=== PATIENT | male | born 1965 | race Caucasian/White ===

== ENCOUNTER 2017-03-27 22:37 | Inpatient (IN) | payer OTHER ==
[~2017-03-27] VITALS: Ht 188 cm; Wt 80.0 kg
[2017-03-27 23:41] VITALS: BP 105/71; PULSE 57; TEMP 98.1
[2017-03-28] VITALS (14 sets, daily range): BP systolic 101–147; BP diastolic 57–94; PULSE 53–107; TEMP 97.9–98.6
[2017-03-28 01:38] LABS: PARTIAL THROMBOPLASTIN TIME 24.1 SECONDS (26.0-37.0)
[2017-03-28 01:39] LABS: CHOLESTEROL 211 mg/dL (120-200); CHOLESTEROL RISK RATIO 4.3; HDL CHOLESTEROL 48 mg/dL; LDL CHOLESTEROL 142 mg/dL; TRIGLYCERIDE 105 mg/dL
[2017-03-28 01:51] LABS: B-TYPE NATRIURETIC PEPTIDE 24 pg/mL (0-125)
[2017-03-28 01:53] LABS: TROPONIN-I < 0.012 ng/mL (0.000-0.034)
[2017-03-28 08:55] LABS: BASO # 0.1 (0.0-0.2); BASO % 0.9 % (0.0-2.0); EOS # 0.1 (0.0-0.7); GRAN # 7.8 (1.4-6.5); GRAN % 73.9 % (42.2-75.2); HEMATOCRIT 40.8 % (42.0-52.0); HEMOGLOBIN 13.3 g/dl (13.5-18.0); LYMPH # 1.6 (1.2-3.4); LYMPH % 15.4 % (20.0-51.0); MEAN CELL VOLUME 99 fl (80.0-100.0); MEAN CORPUSCULAR HEMOGLOBIN 32 pg (27.0-31.0); MEAN CORPUSCULAR HGB CONC 33 g/dl (33.0-37.0); MEAN PLATELET VOLUME 10.7 fl (7.4-10.4); MONO # 0.9 (0.1-0.6); MONO % 8.2 % (1.7-9.3); PLATELET COUNT 255 K/mm3 (130-400); RED BLOOD COUNT 4.14 M/mm3 (4.20-5.60); WHITE BLOOD COUNT 10.5 K/mm3 (4.8-10.8)
[2017-03-28 08:57] LABS: ADJUSTED CALCIUM 9.5 mg/dL (8.4-10.2); BILIRUBIN,TOTAL 1.1 mg/dL (0.0-1.0); CALCIUM 8.7 mg/dL (8.4-10.2); CREATININE, serum 0.78 mg/dL (0.66-1.25); POTASSIUM 4.4 mmol/L (3.4-5.0); TOTAL PROTEIN 6.2 gm/dL (6.4-8.2)
[2017-03-28 19:13] LABS: C-REACTIVE PROTEIN < 0.5 mg/dL (0.0-0.9); TROPONIN-I < 0.012 ng/mL (0.000-0.034)
[2017-03-28 19:51] LABS: TSH w REFLEX 3.75 uIU/mL (0.465-4.680)
[2017-03-28 21:25] LABS: PH 6 (5-8); URINE BILIRUBIN Negative (NEGATIVE); URINE GLUCOSE Negative (NEGATIVE); URINE KETONE Negative (NEGATIVE); URINE PROTEIN(semi-quant) 1+ (NEGATIVE); URINE UROBILINOGEN >=4.0 mg/dL (NEGATIVE)
[2017-03-28 21:26] LABS: URINE APPEARANCE Hazy; URINE BLOOD Negative (NEGATIVE); URINE COLOR Yellow; URINE LEUKOCYTE ESTERASE 1+ (NEGATIVE)
[2017-03-28 21:37] LABS: MUCOUS Present /lpf; SQUAMOUS EPITHELIAL 0-2 /hpf; URINE BACTERIA None Seen /hpf
[2017-03-28 21:38] LABS: COLLECTION METHOD CLEAN CATCH
[2017-03-29] VITALS (7 sets, daily range): BP systolic 108–132; BP diastolic 59–86; PULSE 55–79; TEMP 97.7–98.3
[2017-03-29 06:36] LABS: BASO # 0.1 (0.0-0.2); BASO % 1.3 % (0.0-2.0); EOS # 0.2 (0.0-0.7); EOS % 1.9 % (0-4.0); GRAN # 5.9 (1.4-6.5); HEMATOCRIT 38.3 % (42.0-52.0); HEMOGLOBIN 12.8 g/dl (13.5-18.0); LYMPH # 1.7 (1.2-3.4); LYMPH % 19.1 % (20.0-51.0); MEAN CELL VOLUME 98 fl (80.0-100.0); MEAN CORPUSCULAR HEMOGLOBIN 33 pg (27.0-31.0); MEAN CORPUSCULAR HGB CONC 33 g/dl (33.0-37.0); MEAN PLATELET VOLUME 10.2 fl (7.4-10.4); MONO # 0.9 (0.1-0.6); MONO % 10.4 % (1.7-9.3); PLATELET COUNT 196 K/mm3 (130-400); RED BLOOD COUNT 3.93 M/mm3 (4.20-5.60); WHITE BLOOD COUNT 8.8 K/mm3 (4.8-10.8)
[2017-03-29 06:54] LABS: CALCIUM 8.3 mg/dL (8.4-10.2); CREATININE, serum 0.74 mg/dL (0.66-1.25); POTASSIUM 3.8 mmol/L (3.4-5.0)
[2017-03-30] VITALS (8 sets, daily range): BP systolic 118–153; BP diastolic 71–107; PULSE 58–70; TEMP 97.8–99
[2017-03-30 07:06] LABS: BASO # 0.1 (0.0-0.2); BASO % 1.6 % (0.0-2.0); EOS # 0.2 (0.0-0.7); EOS % 2.3 % (0-4.0); GRAN # 4.7 (1.4-6.5); GRAN % 66.3 % (42.2-75.2); HEMATOCRIT 38.7 % (42.0-52.0); LYMPH # 1.2 (1.2-3.4); LYMPH % 17.2 % (20.0-51.0); MEAN CELL VOLUME 97 fl (80.0-100.0); MEAN CORPUSCULAR HEMOGLOBIN 32 pg (27.0-31.0); MEAN CORPUSCULAR HGB CONC 34 g/dl (33.0-37.0); MEAN PLATELET VOLUME 10.5 fl (7.4-10.4); MONO # 0.9 (0.1-0.6); PLATELET COUNT 193 K/mm3 (130-400); RED BLOOD COUNT 4.01 M/mm3 (4.20-5.60); WHITE BLOOD COUNT 7.1 K/mm3 (4.8-10.8)
[2017-03-30 07:22] LABS: CALCIUM 8.4 mg/dL (8.4-10.2); CREATININE, serum 0.73 mg/dL (0.66-1.25); POTASSIUM 3.9 mmol/L (3.4-5.0)
[2017-03-31 02:22] LABS: BASO # 0.1 (0.0-0.2); BASO % 1.3 % (0.0-2.0); EOS # 0.1 (0.0-0.7); EOS % 1.9 % (0-4.0); GRAN # 4.1 (1.4-6.5); GRAN % 61.5 % (42.2-75.2); HEMOGLOBIN 12.1 g/dl (13.5-18.0); LYMPH # 1.6 (1.2-3.4); LYMPH % 23.2 % (20.0-51.0); MEAN CELL VOLUME 97 fl (80.0-100.0); MEAN CORPUSCULAR HEMOGLOBIN 32 pg (27.0-31.0); MEAN CORPUSCULAR HGB CONC 34 g/dl (33.0-37.0); MEAN PLATELET VOLUME 10.5 fl (7.4-10.4); MONO # 0.8 (0.1-0.6); MONO % 11.5 % (1.7-9.3); PLATELET COUNT 167 K/mm3 (130-400); RED BLOOD COUNT 3.73 M/mm3 (4.20-5.60); WHITE BLOOD COUNT 6.7 K/mm3 (4.8-10.8)
[2017-03-31 02:24] LABS: HEMATOCRIT 36.1 % (42.0-52.0)
[2017-03-31 02:34] LABS: CALCIUM 8.8 mg/dL (8.4-10.2); CREATININE, serum 0.77 mg/dL (0.66-1.25); MAGNESIUM 1.8 mg/dL (1.6-2.3); PHOSPHOROUS 3.7 mg/dL (2.5-4.5)
[2017-03-31 03:41] VITALS: BP 118/71; PULSE 53; TEMP 98.7
[2017-03-31 08:06] VITALS: BP 110/82; PULSE 63; TEMP 98.1
[2017-03-31 11:43] VITALS: BP 153/85; PULSE 64; TEMP 98.9
[2017-03-31 11:46] VITALS: BP 153/85
[2017-03-31 15:51] VITALS: BP 155/87; PULSE 64; TEMP 98
[2017-03-31 20:36] VITALS: BP 139/88; PULSE 62; TEMP 99.2
[2017-04-01 01:40] VITALS: BP 135/89; PULSE 53; TEMP 97.4
[2017-04-01 05:51] VITALS: BP 140/89; PULSE 56; TEMP 98.3
[2017-04-01 06:14] LABS: BASO # 0.1 (0.0-0.2); BASO % 1.6 % (0.0-2.0); EOS # 0.2 (0.0-0.7); EOS % 2.5 % (0-4.0); GRAN # 4.3 (1.4-6.5); GRAN % 60.4 % (42.2-75.2); HEMATOCRIT 41.3 % (42.0-52.0); HEMOGLOBIN 13.8 g/dl (13.5-18.0); LYMPH # 1.6 (1.2-3.4); LYMPH % 22.2 % (20.0-51.0); MEAN CELL VOLUME 96 fl (80.0-100.0); MEAN CORPUSCULAR HEMOGLOBIN 32 pg (27.0-31.0); MEAN CORPUSCULAR HGB CONC 33 g/dl (33.0-37.0); MEAN PLATELET VOLUME 10.6 fl (7.4-10.4); MONO # 0.9 (0.1-0.6); MONO % 12.9 % (1.7-9.3); PLATELET COUNT 184 K/mm3 (130-400); RED BLOOD COUNT 4.29 M/mm3 (4.20-5.60); WHITE BLOOD COUNT 7.1 K/mm3 (4.8-10.8)
[2017-04-01 06:29] LABS: CALCIUM 8.7 mg/dL (8.4-10.2); CREATININE, serum 0.75 mg/dL (0.66-1.25); MAGNESIUM 1.9 mg/dL (1.6-2.3); PHOSPHOROUS 3.5 mg/dL (2.5-4.5); POTASSIUM 3.9 mmol/L (3.4-5.0)
[2017-04-01 07:42] VITALS: BP 148/81; PULSE 61; TEMP 97.5
[2017-04-01 11:26] VITALS: BP 138/79; PULSE 71; TEMP 97.9
[2017-04-01 13:23] LABS: CEREBROSPINAL TUBE #3; CSF APPEARANCE CLEAR; CSF COLOR COLORLESS
[2017-04-01 13:24] LABS: CSF POLYMORPHONUCLEAR 0 % (0-6)
[2017-04-01 15:48] VITALS: BP 131/91; PULSE 76; TEMP 97.8
[2017-04-01 20:42] VITALS: BP 128/98; PULSE 70; TEMP 98.6
[2017-04-02 00:14] VITALS: BP 123/76; PULSE 59; TEMP 98.4
[2017-04-02 04:16] VITALS: BP 125/76; PULSE 59; TEMP 98.3
[2017-04-02 06:39] LABS: BASO # 0.1 (0.0-0.2); BASO % 1.4 % (0.0-2.0); EOS # 0.2 (0.0-0.7); EOS % 2.7 % (0-4.0); GRAN # 5.3 (1.4-6.5); GRAN % 62.1 % (42.2-75.2); LYMPH # 1.8 (1.2-3.4); MEAN CELL VOLUME 97 fl (80.0-100.0); MEAN CORPUSCULAR HEMOGLOBIN 32 pg (27.0-31.0); MEAN CORPUSCULAR HGB CONC 33 g/dl (33.0-37.0); MEAN PLATELET VOLUME 11.3 fl (7.4-10.4); MONO # 1.1 (0.1-0.6); MONO % 12.3 % (1.7-9.3); PLATELET COUNT 179 K/mm3 (130-400); RED BLOOD COUNT 4.33 M/mm3 (4.20-5.60); WHITE BLOOD COUNT 8.6 K/mm3 (4.8-10.8)
[2017-04-02 07:17] LABS: ADJUSTED CALCIUM 9.8 mg/dL (8.4-10.2); ALBUMIN 3.3 gm/dL (3.5-5.0); BILIRUBIN,TOTAL 0.6 mg/dL (0.0-1.0); CALCIUM 9.2 mg/dL (8.4-10.2); CREATININE, serum 0.77 mg/dL (0.66-1.25); POTASSIUM 3.9 mmol/L (3.4-5.0); TOTAL PROTEIN 6.4 gm/dL (6.4-8.2)
[2017-04-02 07:37] VITALS: BP 121/82; PULSE 57; TEMP 98.1
[2017-04-02 11:32] VITALS: BP 100/56; PULSE 66; TEMP 97.9
[2017-04-02 15:29] VITALS: BP 140/79; PULSE 61; TEMP 97.8
[2017-04-02 19:48] VITALS: BP 129/84; PULSE 64; TEMP 98.6
[2017-04-03 00:44] VITALS: BP 117/74; PULSE 58; TEMP 97.8
[2017-04-03 06:54] LABS: BASO # 0.1 (0.0-0.2); BASO % 1.2 % (0.0-2.0); EOS # 0.2 (0.0-0.7); EOS % 2.7 % (0-4.0); GRAN # 4.4 (1.4-6.5); GRAN % 58.5 % (42.2-75.2); HEMATOCRIT 41.1 % (42.0-52.0); HEMOGLOBIN 14.1 g/dl (13.5-18.0); LYMPH # 1.7 (1.2-3.4); LYMPH % 23.4 % (20.0-51.0); MEAN CELL VOLUME 97 fl (80.0-100.0); MEAN CORPUSCULAR HEMOGLOBIN 33 pg (27.0-31.0); MEAN CORPUSCULAR HGB CONC 34 g/dl (33.0-37.0); MEAN PLATELET VOLUME 11.2 fl (7.4-10.4); MONO % 13.1 % (1.7-9.3); PLATELET COUNT 171 K/mm3 (130-400); RED BLOOD COUNT 4.24 M/mm3 (4.20-5.60); WHITE BLOOD COUNT 7.4 K/mm3 (4.8-10.8)
[2017-04-03 07:05] LABS: CREATININE, serum 0.75 mg/dL (0.66-1.25)
[2017-04-03 08:05] VITALS: BP 128/77; PULSE 63; TEMP 98.2
[2017-04-03 12:42] VITALS: BP 131/82; PULSE 56; TEMP 98.6
[2017-04-03 15:50] VITALS: BP 143/89; PULSE 69; TEMP 98
[2017-04-03 19:49] VITALS: BP 120/72; PULSE 70; TEMP 98
[2017-04-03 23:58] VITALS: BP 103/58; PULSE 64; TEMP 98
[2017-04-04 05:21] VITALS: BP 105/61; BP 94/61; PULSE 55; TEMP 97.6
[2017-04-04 07:37] VITALS: BP 103/59; PULSE 55; TEMP 98.2
[2017-04-04 08:10] LABS: ALBUMIN CSF 17.2 mg/dL (<=27.0); CSF IGG/ALBUMIN 0.22 (<=0.21); CSF,IGG 3.7 mg/dL (<=8.1)
[2017-04-04 08:21] LABS: CSF SYNTHESIS RATE 3.91 mg/24 h (<=12); CSF-IGG INDEX 0.67 (<=0.85); IGG/ALBUMIN SERUM 0.33 (<=0.40)
[2017-04-04 11:32] VITALS: BP 111/85; PULSE 61; TEMP 98.2
[2017-04-04] MEDS ORDERED: DEPAKOTE500 MG PO (13:07)
[2017-04-04] MEDS ORDERED: KETOROLAC30 MG/ML IV (17:46)
[2017-04-04] MEDS ORDERED: PRINIVIL5 MG PO (17:55)
[2017-04-05] MEDS ORDERED: MUCINEX DM 30 M1 TE1 (01:07)
[2017-04-05] MEDS ORDERED: SEROQUEL 2525 MG/TAB PO (01:08)
[2017-04-05] MEDS ORDERED: FLONASE NASAL S16 GM NS (01:10)
[2017-04-05] MEDS ORDERED: FLORASTOR250 MG PO (01:11)
[2017-04-05] MEDS ORDERED: PROBIOTIC ACID1 EAC3 PO (01:13)
[2017-04-05] MEDS ORDERED: NITRO-BID22 TOP (01:33)
[2017-04-05] MEDS ORDERED: GICOCKTAIL PO (01:34)
[2017-04-05] MEDS ORDERED: PLAVIX 75MG TAB75 MG PO (01:35)
[2017-04-05] MEDS ORDERED: THIAMINE 1100 MG/TAB PO (01:35)
[2017-04-05] MEDS ORDERED: DULCOLAX STOOL100 MG PO (01:37)
[2017-04-05] MEDS ORDERED: AMOXICILLIN 8751 TAB PO (01:37)
[2017-04-05] MEDS ORDERED: PEPCID 20MG TAB20 MG PO (01:38)
[2017-04-05] MEDS ORDERED: TYLENOL 325MG325 MG PO (01:39)
[2017-04-05] MEDS ORDERED: MAALOX ADVANCE148 ML PO (01:41)
[2017-04-05] MEDS ORDERED: NITROSTAT0.4 MG/TAB SL (01:42)
[2017-04-05] MEDS ORDERED: ZOFRAN INJ4 MG/2 ML IV (01:44)
== END 2017-04-04 13:58 | DRG 884 ==
LOC: MEDICAL 22:37
PROVIDERS: Internal Medicine; Nurse Practitioner Family; Physician Assistant; Psychiatry & Neurology Neurology
PROC: 009U3ZX Drainage of Spinal Canal, Percutaneous Approach, Diagnostic (ICD-10-PCS; principal; 2017-04-01)
PROC: B01B1ZZ Fluoroscopy of Spinal Cord using Low Osmolar Contrast (ICD-10-PCS; 2017-04-01)
DX: R40.4 Transient alteration of awareness (principal); I69.351 Hemiplegia and hemiparesis following cerebral infarction affecting right dominant side; E87.1 Hypo-osmolality and hyponatremia; N39.0 Urinary tract infection, site not specified; R55 Syncope and collapse; Z66 Do not resuscitate; I10 Essential (primary) hypertension; F17.210 Nicotine dependence, cigarettes, uncomplicated; J01.20 Acute ethmoidal sinusitis, unspecified; J01.00 Acute maxillary sinusitis, unspecified; H53.461 Homonymous bilateral field defects, right side; H02.401 Unspecified ptosis of right eyelid; M50.321 Other cervical disc degeneration at C4-C5 level
CPT/HCPCS: 99223-AI; 99231-AI; 99232-AI; 99233-AI; 99239; A9502; A9585; J1200; J1650; J1885; J2060; J2270; J2405; J2765; J2785; J3411; J7030; J7120

== ENCOUNTER 2017-04-04 10:10 | Inpatient (IN) | payer OTHER ==
[~2017-04-04] VITALS: Ht 190.5 cm; Wt 82.0 kg
[2017-04-04] MEDS ORDERED: DEPAKOTE500 MG PO (13:07)
[2017-04-04 14:59] VITALS: BP 104/74; PULSE 75; TEMP 97.7
[2017-04-04 17:22] VITALS: BP 110/67; PULSE 62; TEMP 97.9
[2017-04-04] MEDS ORDERED: KETOROLAC30 MG/ML IV (17:46)
[2017-04-04 17:55] VITALS: BP 110/67; PULSE 62; TEMP 97.9
[2017-04-04] MEDS ORDERED: PRINIVIL5 MG PO (17:55)
[2017-04-05] MEDS ORDERED: MUCINEX DM 30 M1 TE1 (01:07)
[2017-04-05] MEDS ORDERED: SEROQUEL 2525 MG/TAB PO (01:08)
[2017-04-05] MEDS ORDERED: FLONASE NASAL S16 GM NS (01:10)
[2017-04-05] MEDS ORDERED: FLORASTOR250 MG PO (01:11)
[2017-04-05] MEDS ORDERED: PROBIOTIC ACID1 EAC3 PO (01:13)
[2017-04-05] MEDS ORDERED: NITRO-BID22 TOP (01:33)
[2017-04-05] MEDS ORDERED: GICOCKTAIL PO (01:34)
[2017-04-05] MEDS ORDERED: PLAVIX 75MG TAB75 MG PO (01:35)
[2017-04-05] MEDS ORDERED: THIAMINE 1100 MG/TAB PO (01:35)
[2017-04-05] MEDS ORDERED: DULCOLAX STOOL100 MG PO (01:37)
[2017-04-05] MEDS ORDERED: AMOXICILLIN 8751 TAB PO (01:37)
[2017-04-05] MEDS ORDERED: PEPCID 20MG TAB20 MG PO (01:38)
[2017-04-05] MEDS ORDERED: TYLENOL 325MG325 MG PO (01:39)
[2017-04-05] MEDS ORDERED: MAALOX ADVANCE148 ML PO (01:41)
[2017-04-05] MEDS ORDERED: NITROSTAT0.4 MG/TAB SL (01:42)
[2017-04-05] MEDS ORDERED: ZOFRAN INJ4 MG/2 ML IV (01:44)
[2017-04-05 05:10] VITALS: BP 98/60; PULSE 56; TEMP 97.4
[2017-04-05 05:45] VITALS: BP 98/60; PULSE 56
[2017-04-05 09:54] VITALS: BP 126/80
[2017-04-05 16:25] VITALS: BP 128/88; PULSE 66; TEMP 98.2
[2017-04-06 06:36] VITALS: BP 110/67; PULSE 55; TEMP 98.2
[2017-04-06 17:44] VITALS: BP 143/88; PULSE 69; TEMP 98.1
[2017-04-07 06:16] VITALS: BP 113/70; PULSE 59; TEMP 97.3
[2017-04-07 16:12] VITALS: BP 129/68; PULSE 60; TEMP 98.4
[2017-04-08 05:42] VITALS: BP 94/62; PULSE 55; TEMP 98.2
[2017-04-08 12:32] VITALS: BP 114/72; PULSE 68
[2017-04-08 14:25] VITALS: BP 120/78; PULSE 66; TEMP 97.6
[2017-04-08 16:41] VITALS: BP 113/63; PULSE 62; TEMP 98.3
[2017-04-09 04:43] VITALS: BP 102/59; PULSE 55; TEMP 97.8
[2017-04-09 08:34] VITALS: BP 122/78
[2017-04-09 17:53] VITALS: BP 124/67; PULSE 69; TEMP 98.1
[2017-04-10 05:50] LABS: HEMATOCRIT 43.1 % (42.0-52.0); MEAN CELL VOLUME 100 fl (80.0-100.0); MEAN CORPUSCULAR HEMOGLOBIN 32 pg (27.0-31.0); MEAN CORPUSCULAR HGB CONC 33 g/dl (33.0-37.0); MEAN PLATELET VOLUME 10.8 fl (7.4-10.4); PLATELET COUNT 178 K/mm3 (130-400); RED BLOOD COUNT 4.32 M/mm3 (4.20-5.60)
[2017-04-10 05:57] LABS: ALBUMIN 3.8 gm/dL (3.5-5.0); BILIRUBIN,TOTAL 0.6 mg/dL (0.0-1.0); CALCIUM 9.6 mg/dL (8.4-10.2); CREATININE, serum 0.84 mg/dL (0.66-1.25); POTASSIUM 4.6 mmol/L (3.4-5.0); TOTAL PROTEIN 7.3 gm/dL (6.4-8.2)
[2017-04-10 06:07] LABS: BAND 2 % (0-10); BASOPHIL 2 % (0-2); EOSINOPHIL 4 % (0-4); LYMPHOCYTE 40 % (20.0-51.0); NEUTROPHILS 42 % (42.0-75.2)
[2017-04-10 06:08] LABS: ANISOCYTOSIS 2+; HYPOCHROMIA 2+; MICROCYTOSIS 1+
[2017-04-10 06:14] VITALS: BP 103/67; PULSE 61; TEMP 97.6
[2017-04-10 17:17] VITALS: BP 107/67; PULSE 62; TEMP 97.7
[2017-04-11 04:51] VITALS: BP 117/55; PULSE 67; TEMP 98.5
[2017-04-11 16:11] VITALS: BP 137/70; PULSE 65; TEMP 97.5
[2017-04-12 05:51] VITALS: BP 111/83; PULSE 69; TEMP 97.3
[2017-04-12 07:25] LABS: ALBUMIN 3.9 gm/dL (3.5-5.0); BILIRUBIN,TOTAL 0.8 mg/dL (0.0-1.0); CALCIUM 9.6 mg/dL (8.4-10.2); CREATININE, serum 0.88 mg/dL (0.66-1.25); POTASSIUM 4.2 mmol/L (3.4-5.0); TOTAL PROTEIN 7.7 gm/dL (6.4-8.2)
[2017-04-12 14:58] VITALS: BP 114/74; PULSE 62; TEMP 98
[2017-04-13 05:40] VITALS: BP 110/77; PULSE 56; TEMP 97.2
[2017-04-13 17:49] VITALS: BP 132/70; PULSE 61; TEMP 97.6
[2017-04-14 03:00] VITALS: BP 103/66; PULSE 68; TEMP 97.1
[2017-04-14 06:22] LABS: ALBUMIN 3.6 gm/dL (3.5-5.0); BILIRUBIN,TOTAL 0.7 mg/dL (0.0-1.0); CALCIUM 9.4 mg/dL (8.4-10.2); CREATININE, serum 0.79 mg/dL (0.66-1.25); MAGNESIUM 1.9 mg/dL (1.6-2.3); TOTAL PROTEIN 7.3 gm/dL (6.4-8.2)
[2017-04-14 07:30] VITALS: BP 115/78
[2017-04-14 17:30] VITALS: BP 116/91; PULSE 69; TEMP 97.9
[2017-04-15 06:03] VITALS: BP 103/68; PULSE 64; TEMP 97.6
[2017-04-15 15:32] VITALS: BP 126/86; PULSE 74; TEMP 97.5
[2017-04-16 05:10] VITALS: BP 99/65; PULSE 58; TEMP 98.2
[2017-04-16 07:48] LABS: ALBUMIN 3.6 gm/dL (3.5-5.0); BILIRUBIN,TOTAL 0.7 mg/dL (0.0-1.0); CALCIUM 9.5 mg/dL (8.4-10.2); CREATININE, serum 0.93 mg/dL (0.66-1.25); MAGNESIUM 1.9 mg/dL (1.6-2.3); POTASSIUM 4.4 mmol/L (3.4-5.0); TOTAL PROTEIN 7.4 gm/dL (6.4-8.2)
[2017-04-16 16:14] VITALS: BP 118/74; PULSE 63; TEMP 98.3
[2017-04-17 05:03] VITALS: BP 104/65; BP 119/49; PULSE 60; PULSE 84; TEMP 98.2; TEMP 98.4
[2017-04-17 18:00] VITALS: BP 126/75; PULSE 64; TEMP 98.1
[2017-04-18 04:46] VITALS: BP 106/64; PULSE 54; TEMP 97.4
[2017-04-18 07:38] LABS: PROTHROMBIN TIME 12.1 SECONDS (9.7-12.8)
[2017-04-18 07:42] LABS: BILIRUBIN UNCONJUGATED 0.6 mg/dL (0.0-1.1); BILIRUBIN,DIRECT 0.2 mg/dL (0.0-0.4); BILIRUBIN,TOTAL 0.9 mg/dL (0.0-1.0); TOTAL PROTEIN 8.5 gm/dL (6.4-8.2)
[2017-04-18 07:47] LABS: VALPROIC ACID (DEPAKENE) 50.1 ug/mL (50.0-100.0)
[2017-04-18 17:54] VITALS: BP 119/76; PULSE 67; TEMP 97.6
[2017-04-19 05:57] VITALS: BP 118/75; PULSE 59; TEMP 98.4
[2017-04-19 06:19] LABS: HEMATOCRIT 44.6 % (42.0-52.0); MEAN CELL VOLUME 96 fl (80.0-100.0); MEAN CORPUSCULAR HEMOGLOBIN 32 pg (27.0-31.0); MEAN CORPUSCULAR HGB CONC 34 g/dl (33.0-37.0); MEAN PLATELET VOLUME 11.5 fl (7.4-10.4); PLATELET COUNT 145 K/mm3 (130-400); RED BLOOD COUNT 4.65 M/mm3 (4.20-5.60); REDCELL DISTRIBUTION WIDTH-CV 13.6 % (11.5-14.5)
[2017-04-19 06:21] LABS: INR 1.1 (0.8-3.0); PROTHROMBIN TIME 12.4 SECONDS (9.7-12.8)
[2017-04-19 06:30] LABS: ALBUMIN 3.9 gm/dL (3.5-5.0); BILIRUBIN,TOTAL 0.9 mg/dL (0.0-1.0); CALCIUM 9.3 mg/dL (8.4-10.2); CREATININE, serum 0.81 mg/dL (0.66-1.25); POTASSIUM 4.3 mmol/L (3.4-5.0); TOTAL PROTEIN 8.1 gm/dL (6.4-8.2)
[2017-04-19 07:28] LABS: BAND 39 % (0-10); EOSINOPHIL 2 % (0-4); LYMPHOCYTE 22 % (20.0-51.0); NEUTROPHILS 35 % (42.0-75.2); PLATELET ESTIMATE NORMAL (NORMAL)
[2017-04-19 18:07] VITALS: BP 106/69; PULSE 60; TEMP 97.4
[2017-04-19 23:14] LABS: HEPATITIS B SURFACE ANTIBODY <2.0 (())
[2017-04-20 00:29] LABS: HEPATITIS B CORE AB,TOTAL Positive (())
[2017-04-20 06:19] VITALS: BP 98/67; PULSE 62; TEMP 98.5
[2017-04-20 17:23] VITALS: BP 113/71; PULSE 66; TEMP 98.2
[2017-04-21 06:21] VITALS: BP 106/71; PULSE 56; TEMP 98.4
[2017-04-21 17:19] VITALS: BP 123/69; PULSE 61; TEMP 97.8
[2017-04-22 05:19] VITALS: BP 100/64; PULSE 58; TEMP 97
[2017-04-22 09:01] LABS: PROTHROMBIN TIME 12.1 SECONDS (9.7-12.8)
[2017-04-22 09:07] LABS: ALBUMIN 4.4 gm/dL (3.5-5.0); BILIRUBIN,TOTAL 1.3 mg/dL (0.0-1.0); CALCIUM 9.7 mg/dL (8.4-10.2); CREATININE, serum 0.91 mg/dL (0.66-1.25); MAGNESIUM 1.8 mg/dL (1.6-2.3); POTASSIUM 3.9 mmol/L (3.4-5.0); TOTAL PROTEIN 9.1 gm/dL (6.4-8.2)
[2017-04-22 15:21] VITALS: BP 104/66; PULSE 62; TEMP 97.8
[2017-04-23 06:52] VITALS: BP 110/65; PULSE 61; TEMP 98.5
[2017-04-23 06:57] LABS: ALBUMIN 3.9 gm/dL (3.5-5.0); BILIRUBIN,TOTAL 1.2 mg/dL (0.0-1.0); CALCIUM 9.5 mg/dL (8.4-10.2); CREATININE, serum 0.85 mg/dL (0.66-1.25); MAGNESIUM 1.8 mg/dL (1.6-2.3); POTASSIUM 4.1 mmol/L (3.4-5.0); TOTAL PROTEIN 8.3 gm/dL (6.4-8.2)
[2017-04-23] MEDS ORDERED: ROXICODONE 55 MG/TAB PO (10:33)
[2017-04-23] MEDS ORDERED: GOOD NEIGHBOR P1 CRE TP (10:33)
[2017-04-23] MEDS ORDERED: OXYCONTIN 10MG10 MG PO (10:33)
[2017-04-23] MEDS ORDERED: DULCOLAX S10 MG/SUPP RC (10:34)
[2017-04-23] MEDS ORDERED: GOOD NEIGH1200 MG/15 PO (10:35)
[2017-04-23] MEDS ORDERED: SENOKOT S 50 MG1 TAB PO (10:35)
[2017-04-23] MEDS ORDERED: MIRALAX PA17 GM/Dose PO (10:35)
[2017-04-23 12:42] LABS: INR 1.1 (0.8-3.0); PROTHROMBIN TIME 12.7 SECONDS (9.7-12.8)
[2017-04-24 12:21] LABS: HEPATITIS Be ANTIGEN Positive (Negative)
== END 2017-04-23 14:00 | DRG 57 ==
PROVIDERS: Internal Medicine; Internal Medicine Gastroenterology
PROC: 02HV33Z Insertion of Infusion Device into Superior Vena Cava, Percutaneous Approach (ICD-10-PCS; principal; 2017-04-23)
DX: I69.351 Hemiplegia and hemiparesis following cerebral infarction affecting right dominant side (principal); E87.1 Hypo-osmolality and hyponatremia; B18.1 Chronic viral hepatitis B without delta-agent; I10 Essential (primary) hypertension; F17.210 Nicotine dependence, cigarettes, uncomplicated; J01.20 Acute ethmoidal sinusitis, unspecified; J01.00 Acute maxillary sinusitis, unspecified; B18.2 Chronic viral hepatitis C
CPT/HCPCS: 99222-AI; 99232-AI; 99233-AI; C1751; J1650; J1885; J2270; J2405

== ENCOUNTER 2017-04-23 14:41 | Inpatient (IN) | payer OTHER ==
[~2017-04-23] VITALS: Ht 190.5 cm; Wt 79.1 kg
[~2017-04-23 14:41] MED LIST: AMOXICILLIN 8751 TAB PO; DEPAKOTE500 MG PO; DULCOLAX S10 MG/SUPP RC; DULCOLAX STOOL100 MG PO; FLONASE NASAL S16 GM NS; FLORASTOR250 MG PO; GICOCKTAIL PO; GOOD NEIGH1200 MG/15 PO; GOOD NEIGHBOR P1 CRE TP; KETOROLAC30 MG/ML IV; MAALOX ADVANCE148 ML PO; MIRALAX PA17 GM/Dose PO; MUCINEX DM 30 M1 TE1; NITRO-BID22 TOP; NITROSTAT0.4 MG/TAB SL; OXYCONTIN 10MG10 MG PO; PEPCID 20MG TAB20 MG PO; PLAVIX 75MG TAB75 MG PO; PRINIVIL5 MG PO; PROBIOTIC ACID1 EAC3 PO; ROXICODONE 55 MG/TAB PO; SENOKOT S 50 MG1 TAB PO; SEROQUEL 2525 MG/TAB PO; THIAMINE 1100 MG/TAB PO; TYLENOL 325MG325 MG PO; ZOFRAN INJ4 MG/2 ML IV
[2017-04-23 15:36] VITALS: BP 111/69; PULSE 68; TEMP 98.8
[2017-04-23 21:42] VITALS: BP 126/73; PULSE 75; TEMP 98.2
[2017-04-24] VITALS (9 sets, daily range): BP systolic 78–125; BP diastolic 44–82; PULSE 56–73; TEMP 97.2–98.4
[2017-04-24 05:56] LABS: HEMATOCRIT 40.4 % (42.0-52.0); HEMOGLOBIN 13.5 g/dl (13.5-18.0); MEAN CELL VOLUME 96 fl (80.0-100.0); MEAN CORPUSCULAR HEMOGLOBIN 32 pg (27.0-31.0); MEAN CORPUSCULAR HGB CONC 33 g/dl (33.0-37.0); MEAN PLATELET VOLUME 11.4 fl (7.4-10.4); PLATELET COUNT 176 K/mm3 (130-400); RED BLOOD COUNT 4.23 M/mm3 (4.20-5.60); REDCELL DISTRIBUTION WIDTH-CV 13.3 % (11.5-14.5)
[2017-04-24 06:04] LABS: INR 1.1 (0.8-3.0); PROTHROMBIN TIME 12.7 SECONDS (9.7-12.8)
[2017-04-24 06:10] LABS: ALBUMIN 3.6 gm/dL (3.5-5.0); CALCIUM 9.4 mg/dL (8.4-10.2); CREATININE, serum 0.83 mg/dL (0.66-1.25); POTASSIUM 3.9 mmol/L (3.4-5.0)
[2017-04-24 06:59] LABS: BAND 38 % (0-10); LYMPHOCYTE 25 % (20.0-51.0); NEUTROPHILS 36 % (42.0-75.2); PLATELET ESTIMATE NORMAL (NORMAL)
[2017-04-25 04:39] VITALS: BP 109/77; PULSE 57; TEMP 97.1
[2017-04-25 07:43] LABS: ALBUMIN 3.5 gm/dL (3.5-5.0); BILIRUBIN,TOTAL 0.8 mg/dL (0.0-1.0); CALCIUM 9.2 mg/dL (8.4-10.2); CREATININE, serum 0.81 mg/dL (0.66-1.25); POTASSIUM 3.8 mmol/L (3.4-5.0); TOTAL PROTEIN 7.7 gm/dL (6.4-8.2)
[2017-04-25 08:00] VITALS: BP 109/74; PULSE 63; TEMP 97.3
[2017-04-25] MEDS ORDERED: PLAVIX 75MG TAB75 MG PO (12:03)
== END 2017-04-25 16:12 | disposition home or self-care (01) | DRG 442 ==
LOC: MEDICAL 14:41
PROVIDERS: Physician Assistant
PROC: 0FB13ZX Excision of Right Lobe Liver, Percutaneous Approach, Diagnostic (ICD-10-PCS; principal; 2017-04-24)
DX: B16.1 Acute hepatitis B with delta-agent without hepatic coma (principal); I69.351 Hemiplegia and hemiparesis following cerebral infarction affecting right dominant side; I10 Essential (primary) hypertension; F17.210 Nicotine dependence, cigarettes, uncomplicated; B18.2 Chronic viral hepatitis C; B18.1 Chronic viral hepatitis B without delta-agent
CPT/HCPCS: 99223-AI; 99232-AI; 99238; J1644; J3010